=== PATIENT | male | born 1945 | race Caucasian/White ===

== ENCOUNTER 2016-04-17 11:38 | Observation (INO) | payer OTHER ==
[~2016-04-17] VITALS: Ht 175.3 cm; Wt 102.0 kg
[~2016-04-17 11:38] MED LIST: AMLODIPINE BESYL5 MG PO; CARVEDILOL25 MG PO; COZAAR100 MG PO; HYDROCHLOROTHIA25 MG PO; KLOR-CON 1010 MEQ PO; METOCLOPRAMIDE10 MG PO; MULTIPLE VITAMIN PO; NORCO1 TA1 PO; PRADAXA150 MG PO; TAMSULOSIN HCL0.4 MG PO; TRICOR145 MG PO
--- NOTE | 2016-04-17 12:39 | DIAGNOSTIC IMAGING REPORT ---
PROCEDURE: XR CHEST 1 VIEW INDICATION: WEAKNESS TECHNIQUE: Portable AP view 12:28 p.m. COMPARISON: None. FINDINGS: Poor inspiration but lungs are clear. Right-sided dual lead pacemaker. Heart size, mediastinum and pulmonary vessels are normal. Left shoulder degenerative changes. IMPRESSION: 1. Pacemaker 2. Poor inspiration
--- NOTE | 2016-04-17 13:34 | ED ORDER SUMMARY ---
..... Patient: MANDIE MENEZES OrderSheet [facility] VisitID: [id number] [address] [place] [address] 70y, M Registration Date/Time: 04/17/2016 ORDER SHEET Weight: 104.3 kg Allergies: Statins GENERAL ORDERS: Chest 1V Urgent (:04/17/2016 Bjorn OLIVIER) (Ack 11:55 [place]) Molded Goods Operator (Continuous) (:04/17/2016 Bjorn OLIVIER) (12:00 EBonham) CBC w Diff Urgent (:04/17/2016 Bjorn OLIVIER) (Ack 11:55 [place]) (12:00 EBonham) CMP Urgent (04/17/2016 Bjorn OLIVIER) (Ack 11:55 [place]) (12:00 E[place]ham) UA-Culture if indicated Urgent (04/17/2016 Bjorn OLIVIER) (Ack 11:55 [place]) PT with INR Urgent (04/17/2016 Bjorn OLIVIER) (Ack 11:55 [place]) (12:00 EBonham) PTT Urgent (04/17/2016 Bjorn OLIVIER) (Ack 11:55 [place]) (12:00 E[place]ham) D-Dimer Urgent (04/17/2016 Bjorn OLIVIER) (Ack 11:55 [place]) (12:00 E[place]) Amylase Urgent (04/17/2016 Bjorn OLIVIER) (Ack 11:55 [place]) (12:00 E[place]) Lipase Urgent (:04/17/2016 Bjorn OLIVIER) (Ack 11:55 [place]) (12:00 E[place]) CPK Urgent (04/17/2016 Bjorn OLIVIER) (Ack 11:55 [place]) (12:00 [place]) Troponin-I Urgent (:04/17/2016 Bjorn OLIVIER) (Ack 11:55 [place]) (12:00 [place]) BNP Urgent (04/17/2016 Bjorn OLIVIER) (Ack 11:55 [place]) (12:00 [facility]) Oxygen (2 L/min) (NC) (11:04/17/2016 Bjorn OLIVIER) (12:00 [facility]) Pulse oximeter (:04/17/2016 Bjorn OLIVIER) (12:00 [facility]) EKG - ER Stat (11:04/17/2016 Bjorn OLIVIER) (Ack 11:55 [place]) (12:00 [facility]) Vitals - Orthostatic (12:04/17/2016 Bjorn OLIVIER) (12:31 [place]) Blood Culture (No) (N/A) Urgent (12:04/17/2016 Bjorn OLIVIER) (Ack 12:34 [place]) (14:12 [facility] ER Tech1) Lactate, Serum Urgent (12:04/17/2016 Bjorn OLIVIER) (Ack 12:34 [place]) (14:12 [facility] ER Tech1) PCT (Procalcitonin) Urgent (12:04/17/2016 Bjorn OLIVIER) (Ack 12:34 [place]) (14:12 [facility] ER Tech1) MEDICATION ORDERS: Carafate PO 500 mg (NOW) (15:07 04/17/2016 Bjorn OLIVIER) (15:23 [facility]) IV FLUIDS: IV Saline Lock (11:04/17/2016 Bjorn OLIVIER) (Ack 11:59 HKone R.N.) (12:01 [facility]) IV NS : initial bolus 250 mL (1000 mL/hr), then 125 mL/hr for 4h (NOW); Urgent (12:04/17/2016 Bjorn OLIVIER) (12:09 [facility]) ORDER SHEET NOTES: [Electronically signed by Olivia Marcus (16:04/17/2016)] [Electronically locked/signed by Olivia Marcus (16:04/17/2016)]
--- NOTE | 2016-04-17 13:34 | ED CLINICAL REPORT ---
Clinical Report - Physicians/Mid Levels [facility] [address] [place] [address] 04/17/2016 11:37 Patient: MANDIE MENEZES Time Seen: 11:42. Arrived- By private vehicle. Historian- patient. HISTORY OF PRESENT ILLNESS Chief Complaint: WEAKNESS. This started about 1 month ago and is still present. It was gradual in onset and has been constant and waxing/waning. The patient has had loss of appetite, fatigue, decreased urine output and generalized weakness. He has had weight loss with poor appetite and nutritional intake (15 lbs over 4 - 5 months). REVIEW OF SYSTEMS No chills, fever, muscle aches, sweats or calf pain. No pedal edema, palpitations, abdominal pain, black stools or bloody stools. No nausea or vomiting. He has had fatigue, weight loss, difficulty breathing and generalized weakness. He has had mild, dull right-sided chest pain (for 15 - 20 seconds yesterday), currently gone. He has had a moderate cough productive of thick, yellow, frankly bloody sputum (for several days). No blood tinged sputum. He has had loose stools (for several weeks). It has been watery. No bloody diarrhea. He has had moderate dizziness described as a light-headedness when standing. All systems otherwise negative, except as recorded above. PAST HISTORY PCP - Micaela. Problems: Abdominal Pain. Gallstone(s). RI. Pacemaker. Diabetes Mellitus. Hypertension. Additional Surgeries: Cholecystectomy. Pacemaker. Sinus Surgery. Medications: Albuterol Sulfate Inhalation. AmLODIPine Besylate Oral 5 mg, daily. Cozaar Oral 100 mg, daily. Hydrochlorothiazide Oral 25 mg, daily. Lupron Depot Intramuscular, Q 6 months. MetFORMIN HCl Oral 500 mg, 2x a day. Metoclopramide HCl Oral 10 mg, 2x a day. Nitrostat Sublingual 0.4 mg, PRN. Potassium Oral 10 MEQ, daily. Pradaxa Oral (Capsule 150 mg) 1 capsule, 2xdaily. Tricor Oral (Tablet 145 mg) 1 tablet. Allergies: Statins. SOCIAL HISTORY Never smoker. No alcohol use or drug use. Residence: [place] Resides in a house. He lives alone. FAMILY HISTORY Diabetes in first-degree relative (father); heart disease in first-degree relative (father). ADDITIONAL NOTES The nursing notes have been reviewed. PHYSICAL EXAM Vital Signs: 04/17/2016 11:55 BP: 112/71. HR: 74. RR: 16. O2 saturation: 98%. Temp: 98.7 F. Have been reviewed. Appearance: Alert. No acute distress. Eyes: Pupils equal, round and reactive to light. ENT: Pharynx normal. Neck: Normal inspection. Neck supple. CVS: Normal heart rate and rhythm. Heart sounds normal. Respiratory: No respiratory distress. Breath sounds normal. Abdomen: No visible injury. Soft and nontender. Bowel sounds normal. No organomegaly. No mass. Back: Normal inspection. Rectal: Rectal exam normal and nontender. Stool heme negative. (POC test reference range: negative). Skin: Skin warm and dry. Normal skin color. Normal skin turgor. Pallor. Extremities: Extremities exhibit normal ROM. No calf tenderness. No lower extremity edema. LABS, X-RAYS, AND EKG EKG: Rate: 75. Ventricular paced rhythm. The study has been independently viewed by me. EKG #2: Rate: 75. Paced rhythm. EKG unchanged when compared with prior EKG. The study has been independently viewed by me. Chest X-ray: (IMPRESSION: 1. Pacemaker 2. Poor inspiration). The X-rays were interpreted by the radiologist and contemporaneously by me. Laboratory Tests: CBC w Diff: (ELAINA: 04/17/2016 11:47) ( MsgRcvd 04/17/2016 12:04) Final results Test Result Flag Units (Reference) WHITE BLOOD COUNT 14.5 H K/uL (4.5-11.5) RED BLOOD COUNT 5.11 M/uL (4.50-5.90) HEMOGLOBIN 15.3 gm/dL (13.5-17.5) HEMATOCRIT 45.7 % (41.0-53.0) MEAN CELL VOLUME 89 fL (80-100) MEAN CORPUSCULAR HGB 30 pg (26-34) MEAN CORPUSCULAR HGB CONC 33 g/dL (31-37) RED CELL DISTRIBUTION WIDTH 13.8 % (11.6-14.8) PLATELET COUNT 390 K/uL (150-400) NEUTROPHIL % 82.8 H % (50-75) LYMPH % 8.3 L % (25-40) MONO % 6.9 % (3-14) EOSINOPHIL % 1.7 % (0-4) BASOPHIL % 0.3 % (0-2) PT with INR: (ELAINA: 04/17/2016 11:47) ( [facility] 04/17/2016 12:13) Final results Test Result Flag Units (Reference) INR 1.4 H (0.8-1.2) Low Intensity Therapy: INR 1.5-2.0 PT range 18.5-23.1Mod.Intensity Therapy: INR 2.0-3.0 PT range 23.1-31.5High Intensity Therapy: INR 2.5-3.5 PT range 27.4-35.5High Intensity Therapy 2: INR 3.0-4.0 PT range 31.5-39.3 APTT 46 H SECONDS (24-34) D-DIMER QUANTITATIVE 0.34 ug/mLFEU (0.27-0.52) The primary value of this quantitative assay relates toits negative predictive value (i.e. exclusion) of pulmonaryembolism/deep vein thrombosis/DIC.Elevated levels of d-dimer may also occur with:, age, cancer, inflammation, liver disease,post-op, infection, hematoma, coronary disease, peripheralarteriopathy, bleeding disorders and thrombolytic treatment.Results should be correlated with other clinical andradiological data.Testing Methodology: Latex Immunoassay Lactate, Serum: (ELAINA: 04/17/2016 12:50) ( [facility] 04/17/2016 13:28) Final results Test Result Flag Units (Reference) LACTIC ACID 1.2 mmol/L (0.4-2.0) [id number]: (ELAINA: 04/17/2016 11:47) ( [facility] 04/17/2016 13:15) Final results Test Result Flag Units (Reference) PROCALCITONIN < 0.05 ng/mL (0-0.5) PCT Concentration: Interpretation : Risk/option for action PCT <=0.5 ng/mL : Systemic : Low risk forinfection(sepsis): progression to severeis not likely. : systemic infection.Local bacterial : CAUTION-PCT levelsinfection is : below 0.5 ng/mL do notpossible. : exclude an infection,because localizedinfections (withoutsystemic signs) may beassociated with suchlow levels. If PCT ismeasured very earlyafter a bacterialchallenge (usually <6hours), these valuesmay still be low. Inthis case PCT shouldbe re-assessed 6-24hours later. PCT >0.5 and : Systemic infection: Moderate risk for<= 2 ng/mL : (sepsis) is : progression to severepossible, but : systemic infection.other conditions : The patient should beare known to : closely monitoredelevate PCT. : both clinically andby re-assessing PCTwithin 6-24 hours. PCT > 2 ng/mL : Systemic infection: High risk for(sepsis) is likely: progression to severeunless other : systemic infection.causes are known. : PCT >= 10 ng/mL : Important systemic: High likelihood ofinflammatory : severe sepsis orresponse, almost : septic shock.exclusively due to:severe bacterial :sepsis or septic :shock. : BNP: (ELAINA: 04/17/2016 11:47) ( MsgRcvd 04/17/2016 12:26) Final results Test Result Flag Units (Reference) B-TYPE NATRIURETIC PEPTIDE 139 H pg/ml (5-100) CMP: (ELAINA: 04/17/2016 11:47) ( MsgRcvd 04/17/2016 12:34) Final results Test Result Flag Units (Reference) GLUCOSE 174 H mg/dL (70-110) BUN 16 mg/dL (7-18) CREATININE 1.0 mg/dL (0.6-1.3) Estimated GFR >60 mL/min Estimated GFR- >60 mL/min Note: Persistent reduction over 3 months in eGFR<60 mL/min/1.73 m2 defines CKD. Patients with eGFR values>=60 mL/min/1.73 m2 may also have CKD if evidence ofpersistent proteinuria. Additional information may be foundat www.kidney.org. SODIUM 139 mmol/L (136-145) POTASSIUM 3.3 L mmol/L (3.5-5.1) CHLORIDE 102 mmol/L (98-107) CARBON DIOXIDE 21 mmol/L (21-32) CALCIUM 9.3 mg/dL (8.5-10.1) TOTAL PROTEIN 7.3 g/dL (6.4-8.2) ALBUMIN 3.9 g/dL (3.3-5.0) BILIRUBIN, TOTAL 0.9 mg/dL (0.0-1.0) ALKALINE PHOSPHATASE 34 L U/L (46-116) AST (SGOT) 20 U/L (15-37) ALT (SGPT) 19 U/L (12-78) LIPASE 80 U/L (73-393) AMYLASE 31 U/L (25-115) CPK 104 U/L (24-260) TROPONIN I <0.05 ng/mL (0.00-1.5) TROPONIN REFERENCE RANGE:<0.1 NEGATIVE0.1-1.5 INDETERMINANT>1.5 POSITIVE . PROGRESS AND PROCEDURES Course of Care: Patient is stable. Discussed case with hospitalist, (Klaus ceballos saw the patient in the emergency department). Reviewed test results and need for additional work-up. Agreed upon treatment plan, need for patient follow-up and decision to place in observation. Patient/family counseled. Old medical records ordered. Disposition: Admitted. Observation. CLINICAL IMPRESSION Diarrhea (chronic). Generalized weakness. Hypotension. (Electronically signed by Jesus Manuel MD 04/17/2016 17:27)
--- NOTE | 2016-04-17 13:34 | ED NURSING NOTES ---
Clinical Report - Nurses [facility] [address] [place] [address] 04/17/2016 11:37 Patient: MANDIE MENEZES TRIAGE Triage time 1145. Acuity: LEVEL 3. Chief Complaint: DIARRHEA. Alert. No acute distress. (pale). --11:58 Olivia Marcus 11:55 04/17/16. BP: 112/71. HR: 74. RR: 16. O2 saturation: 98%. Temp: 98.7 F. Pain level now 0/10. --11:58 Olivia Marcus. Weight: 104.3 kg. Height/Length: 69 inches. BMI: 34. --11:55 Olivia Marcus. Medications Albuterol Sulfate Inhalation. AmLODIPine Besylate Oral 5 mg, daily. Cozaar Oral 100 mg, daily. Hydrochlorothiazide Oral 25 mg, daily. Lupron Depot Intramuscular, Q 6 months. MetFORMIN HCl Oral 500 mg, 2x a day. Metoclopramide HCl Oral 10 mg, 2x a day. Nitrostat Sublingual 0.4 mg, PRN. Potassium Oral 10 MEQ, daily. Pradaxa Oral (Capsule 150 mg) 1 capsule, 2xdaily. Tricor Oral (Tablet 145 mg) 1 tablet. --11:57 Olivia Marcus. Allergies Statins. --11:57 Olivia Marcus. History Arrived by private vehicle. Historian: patient. Onset. (2 weeks ago). ( Pt with 2 weeks of diarrhea, denies n/v, now feels tired and weak, used immodium to clear up diarrhea, denies any new pains or sob, PCP told him to come to ER). Treatment HAND PAINTER: None. FALL RISK ASSESSMENT: Fall risk assessment completed. No fall risk identified. NUTRITIONAL RISK ASSESSMENT: The nutritional risk assessment revealed no deficiencies. FUNCTIONAL ASSESSMENT: Functional assessment: no impairments noted. LEARNING NEEDS ASSESSMENT: The learning needs assessment revealed no barriers. --11:58 Olivia Marcus. PROBLEMS: Abdominal Pain. Gallstone(s). [place]. Pacemaker. Diabetes Mellitus. Hypertension. --11:57 Olivia Marcus. ADDITIONAL SURGERIES: Cholecystectomy. Pacemaker. Sinus Surgery. --11:57 Olivia Marcus. Interventions ID band on patient. To treatment room. --11:58 Olivia Marcus. PHYSICAL ASSESSMENT Ambulatory to room. GENERAL / NEURO / PSYCH: Alert. Oriented X 4. (pale). RESPIRATORY: Mild respiratory distress. Breath sounds within normal limits. CVS: Normal sinus rhythm noted. Capillary refill less than 2 seconds. GI / : The patient has diarrhea. Abdomen soft and nontender. Bowel sounds within normal limits. SKIN: Skin is pale. Skin is cool and diaphoretic. --11:59 Olivia Marcus. NURSING PROGRESS NOTES 12:00 04/17/2016 Site #1 started via IV in the right antecubital space with an 20g angiocath, with aseptic technique and good blood return; one attempt. Blood drawn: rainbow set. Labeled in the presence of the patient and sent to the lab. Saline lock flushed with 10 mL saline. --12:00 Olivia Marcus Monitoring of patient in place. Reassurance given. Two patient identifiers checked. Call light placed in reach. Side rails up x 1. Bed placed in lowest position. Patient ready for evaluation- chart flagged. --12:00 Olivia Marcus EKG time: (12:01 PM). EKG was performed by a kaci and shown to the ED physician. --12:03 Pavan Harper 12:04/17/2016 Started bag #1 1000 mL IV Fluids IV NS (Saline); bolus of 250 mL wide open via site #1. Allergies verified and confirmed 5 rights. IV patency established. IV site checked: no pain, redness, or swelling. IV flushed thoroughly pre- and post-medication administration. --12: Olivia Marcus 12:28 04/17/16. BP: 75/46 taken on the left arm, via an automated monitor, while lying. ED physician notified. HR: 75. RR: 19. O2 saturation: 95% on room air. --12:29 Pavan Harper <<STRICKEN ENTRY-- electromechanical equipment assembler, pulse oximeter and NIBP monitor placed on patient; director of cardiac cath lab- Lead V1, V2 and V3. --12:29 Pavan Harper --END STRIKE>> Charted On Wrong Patient --12:30 Pavan Harper 13:00 04/17/16. BP: 70/46. HR: 80. RR: 16. --13:01 Cocoa, Olivia Patient ready for evaluation- ED physician notified. ( 250ml NS bolus #[address] Manuel). --13:01 Olivia Marcus 13:15 04/17/16. BP: 80/47. HR: 70. RR: 16. --13:16 Cocoa, Olivia ( 250 ml NS #3 started). --13:16 Cocoa, Olivia Patient ready for evaluation- ED physician notified. --13:16 AngelineOlivia 13:31 04/17/16. BP: 89/48. HR: 70. --13:31 Olivia Marcus ( 250ml NS bolus #4 started). --13:31 AngelineOlivia Patient ready for evaluation- ED physician notified. --13:32 Olivia Marcus 13:52 04/17/2016 Site #1; patent. Converted to saline lock. Flushed with 10 mL saline. (1000 ml infused). --13:52 Kaylee Ruano R.N. 15:23 04/17/2016 Carafate (Sucralfate) PO 500 mg given. Allergies verified and confirmed 5 rights. --15:23 Olivia Marcus Patient ready for evaluation- ED physician notified. ( Provider aware of low b/p post bolus of total 1l after 45 min, ER provider not wanting to order anything at this time, pt noted to be pale and with decreased mentation, RN Demolition Hammer Operator called, explained situation, pt to go to CCU, TO for 250ml bolus from hospitalist). --15:49 Olivia Marcus 15:46 04/17/16. BP: 74/47. HR: 78. RR: 16. --15:49 Olivia Marcus. DISPOSITION / DISCHARGE Departure time: 1600. Condition at departure: unchanged. ( hypotension profound noted). Admitted to the Critical Care Unit (1600). Transported via stretcher by nurse. Report was given to a nurse via a phone call. Report included patient's care, treatment, medications, reviewed medication reconcilliation, and condition (including any recent changes or anticipated changes). All questions were answered. Report was acknowledged and care was transferred. (Katherine ESCALERA). --15:51 Olivia Marcus 15:51 04/17/2016 IV Fluids IV NS Discontinued: bag #1 infused upon transfer. Total amount infused: 1000 mL. --15:51 Olivia Marcus. Locked/Released at 04/17/2016 16:02 by Olivia Marcus,
--- NOTE | 2016-04-17 13:34 | ED CLINICAL REPORT ---
Clinical Report - Physicians/Mid Levels Formerly [facility] [address] [place] [address] 04/17/2016 11:37 Patient: MANDIE MENEZES Time Seen: 11:42. Arrived- By private vehicle. Historian- patient. HISTORY OF PRESENT ILLNESS Chief Complaint: WEAKNESS. This started about 1 month ago and is still present. It was gradual in onset and has been constant and waxing/waning. The patient has had loss of appetite, fatigue, decreased urine output and generalized weakness. He has had weight loss with poor appetite and nutritional intake (15 lbs over 4 - 5 months). REVIEW OF SYSTEMS No chills, fever, muscle aches, sweats or calf pain. No pedal edema, palpitations, abdominal pain, black stools or bloody stools. No nausea or vomiting. He has had fatigue, weight loss, difficulty breathing and generalized weakness. He has had mild, dull right-sided chest pain (for 15 - 20 seconds yesterday), currently gone. He has had a moderate cough productive of thick, yellow, frankly bloody sputum (for several days). No blood tinged sputum. He has had loose stools (for several weeks). It has been watery. No bloody diarrhea. He has had moderate dizziness described as a light-headedness when standing. All systems otherwise negative, except as recorded above. PAST HISTORY PCP - Micaela. Problems: Abdominal Pain. Gallstone(s). DC. Pacemaker. Diabetes Mellitus. Hypertension. Additional Surgeries: Cholecystectomy. Pacemaker. Sinus Surgery. Medications: Albuterol Sulfate Inhalation. AmLODIPine Besylate Oral 5 mg, daily. Cozaar Oral 100 mg, daily. Hydrochlorothiazide Oral 25 mg, daily. Lupron Depot Intramuscular, Q 6 months. MetFORMIN HCl Oral 500 mg, 2x a day. Metoclopramide HCl Oral 10 mg, 2x a day. Nitrostat Sublingual 0.4 mg, PRN. Potassium Oral 10 MEQ, daily. Pradaxa Oral (Capsule 150 mg) 1 capsule, 2xdaily. Tricor Oral (Tablet 145 mg) 1 tablet. Allergies: Statins. SOCIAL HISTORY Never smoker. No alcohol use or drug use. Residence: [place] Resides in a house. He lives alone. FAMILY HISTORY Diabetes in first-degree relative (father); heart disease in first-degree relative (father). ADDITIONAL NOTES The nursing notes have been reviewed. PHYSICAL EXAM Vital Signs: 04/17/2016 11:55 BP: 112/71. HR: 74. RR: 16. O2 saturation: 98%. Temp: 98.7 F. Have been reviewed. Appearance: Alert. No acute distress. Eyes: Pupils equal, round and reactive to light. ENT: Pharynx normal. Neck: Normal inspection. Neck supple. CVS: Normal heart rate and rhythm. Heart sounds normal. Respiratory: No respiratory distress. Breath sounds normal. Abdomen: No visible injury. Soft and nontender. Bowel sounds normal. No organomegaly. No mass. Back: Normal inspection. Rectal: Rectal exam normal and nontender. Stool heme negative. (POC test reference range: negative). Skin: Skin warm and dry. Normal skin color. Normal skin turgor. Pallor. Extremities: Extremities exhibit normal ROM. No calf tenderness. No lower extremity edema. LABS, X-RAYS, AND EKG EKG: Rate: 75. Ventricular paced rhythm. The study has been independently viewed by me. EKG #2: Rate: 75. Paced rhythm. EKG unchanged when compared with prior EKG. The study has been independently viewed by me. Chest X-ray: (IMPRESSION: 1. Pacemaker 2. Poor inspiration). The X-rays were interpreted by the radiologist and contemporaneously by me. Laboratory Tests: CBC w Diff: (ELAINA: 04/17/2016 11:47) ( MsgRcvd 04/17/2016 12:04) Final results Test Result Flag Units (Reference) WHITE BLOOD COUNT 14.5 H K/uL (4.5-11.5) RED BLOOD COUNT 5.11 M/uL (4.50-5.90) HEMOGLOBIN 15.3 gm/dL (13.5-17.5) HEMATOCRIT 45.7 % (41.0-53.0) MEAN CELL VOLUME 89 fL (80-100) MEAN CORPUSCULAR HGB 30 pg (26-34) MEAN CORPUSCULAR HGB CONC 33 g/dL (31-37) RED CELL DISTRIBUTION WIDTH 13.8 % (11.6-14.8) PLATELET COUNT 390 K/uL (150-400) NEUTROPHIL % 82.8 H % (50-75) LYMPH % 8.3 L % (25-40) MONO % 6.9 % (3-14) EOSINOPHIL % 1.7 % (0-4) BASOPHIL % 0.3 % (0-2) PT with INR: (ELAINA: 04/17/2016 11:47) ( [facility] 04/17/2016 12:13) Final results Test Result Flag Units (Reference) INR 1.4 H (0.8-1.2) Low Intensity Therapy: INR 1.5-2.0 PT range 18.5-23.1Mod.Intensity Therapy: INR 2.0-3.0 PT range 23.1-31.5High Intensity Therapy: INR 2.5-3.5 PT range 27.4-35.5High Intensity Therapy 2: INR 3.0-4.0 PT range 31.5-39.3 APTT 46 H SECONDS (24-34) D-DIMER QUANTITATIVE 0.34 ug/mLFEU (0.27-0.52) The primary value of this quantitative assay relates toits negative predictive value (i.e. exclusion) of pulmonaryembolism/deep vein thrombosis/DIC.Elevated levels of d-dimer may also occur with:, age, cancer, inflammation, liver disease,post-op, infection, hematoma, coronary disease, peripheralarteriopathy, bleeding disorders and thrombolytic treatment.Results should be correlated with other clinical andradiological data.Testing Methodology: Latex Immunoassay Lactate, Serum: (ELAINA: 04/17/2016 12:50) ( [facility] 04/17/2016 13:28) Final results Test Result Flag Units (Reference) LACTIC ACID 1.2 mmol/L (0.4-2.0) [id number]: (ELAINA: 04/17/2016 11:47) ( [facility] 04/17/2016 13:15) Final results Test Result Flag Units (Reference) PROCALCITONIN < 0.05 ng/mL (0-0.5) PCT Concentration: Interpretation : Risk/option for action PCT <=0.5 ng/mL : Systemic : Low risk forinfection(sepsis): progression to severeis not likely. : systemic infection.Local bacterial : CAUTION-PCT levelsinfection is : below 0.5 ng/mL do notpossible. : exclude an infection,because localizedinfections (withoutsystemic signs) may beassociated with suchlow levels. If PCT ismeasured very earlyafter a bacterialchallenge (usually <6hours), these valuesmay still be low. Inthis case PCT shouldbe re-assessed 6-24hours later. PCT >0.5 and : Systemic infection: Moderate risk for<= 2 ng/mL : (sepsis) is : progression to severepossible, but : systemic infection.other conditions : The patient should beare known to : closely monitoredelevate PCT. : both clinically andby re-assessing PCTwithin 6-24 hours. PCT > 2 ng/mL : Systemic infection: High risk for(sepsis) is likely: progression to severeunless other : systemic infection.causes are known. : PCT >= 10 ng/mL : Important systemic: High likelihood ofinflammatory : severe sepsis orresponse, almost : septic shock.exclusively due to:severe bacterial :sepsis or septic :shock. : BNP: (ELAINA: 04/17/2016 11:47) ( MsgRcvd 04/17/2016 12:26) Final results Test Result Flag Units (Reference) B-TYPE NATRIURETIC PEPTIDE 139 H pg/ml (5-100) CMP: (ELAINA: 04/17/2016 11:47) ( MsgRcvd 04/17/2016 12:34) Final results Test Result Flag Units (Reference) GLUCOSE 174 H mg/dL (70-110) BUN 16 mg/dL (7-18) CREATININE 1.0 mg/dL (0.6-1.3) Estimated GFR >60 mL/min Estimated GFR- >60 mL/min Note: Persistent reduction over 3 months in eGFR<60 mL/min/1.73 m2 defines CKD. Patients with eGFR values>=60 mL/min/1.73 m2 may also have CKD if evidence ofpersistent proteinuria. Additional information may be foundat www.kidney.org. SODIUM 139 mmol/L (136-145) POTASSIUM 3.3 L mmol/L (3.5-5.1) CHLORIDE 102 mmol/L (98-107) CARBON DIOXIDE 21 mmol/L (21-32) CALCIUM 9.3 mg/dL (8.5-10.1) TOTAL PROTEIN 7.3 g/dL (6.4-8.2) ALBUMIN 3.9 g/dL (3.3-5.0) BILIRUBIN, TOTAL 0.9 mg/dL (0.0-1.0) ALKALINE PHOSPHATASE 34 L U/L (46-116) AST (SGOT) 20 U/L (15-37) ALT (SGPT) 19 U/L (12-78) LIPASE 80 U/L (73-393) AMYLASE 31 U/L (25-115) CPK 104 U/L (24-260) TROPONIN I <0.05 ng/mL (0.00-1.5) TROPONIN REFERENCE RANGE:<0.1 NEGATIVE0.1-1.5 INDETERMINANT>1.5 POSITIVE . PROGRESS AND PROCEDURES Course of Care: Patient is stable. Discussed case with hospitalist, (Klaus ceballos saw the patient in the emergency department). Reviewed test results and need for additional work-up. Agreed upon treatment plan, need for patient follow-up and decision to place in observation. Patient/family counseled. Old medical records ordered. Disposition: Admitted. Observation. CLINICAL IMPRESSION Diarrhea (chronic). Generalized weakness. Hypotension. (Electronically signed by Jesus Manuel MD 04/17/2016 17:27)
--- NOTE | 2016-04-17 13:34 | ED ORDER SUMMARY ---
..... Patient: MANDIE MENEZES OrderSheet [facility] VisitID: [id number] [address] [place] [address] 70y, M Registration Date/Time: 04/17/2016 ORDER SHEET Weight: 104.3 kg Allergies: Statins GENERAL ORDERS: Chest 1V Urgent (:04/17/2016 Bjorn OLIVIER) (Ack 11:55 [place]) Tobacco Packing Machine Operator (Continuous) (:04/17/2016 Bjorn OLIVIER) (12:00 EBon[place]) CBC w Diff Urgent (:04/17/2016 Bjorn OLIVIER) (Ack 11:55 [place]) (12:00 E[place]ham) CMP Urgent (04/17/2016 Bjorn OLIVIER) (Ack 11:55 [place]) (12:00 E[place]) UA-Culture if indicated Urgent (04/17/2016 Bjorn OLIVIER) (Ack 11:55 [place]) PT with INR Urgent (04/17/2016 Bjorn OLIVIER) (Ack 11:55 [place]) (12:00 E[place]) PTT Urgent (04/17/2016 Bjorn OLIVIER) (Ack 11:55 [place]) (12:00 E[place]) D-Dimer Urgent (04/17/2016 Bjorn OLIVIER) (Ack 11:55 [place]) (12:00 [place]) Amylase Urgent (04/17/2016 Bjorn OLIVIER) (Ack 11:55 [place]) (12:00 E[place]) Lipase Urgent (:04/17/2016 Bjorn OLIVIER) (Ack 11:55 [place]) (12:00 [place]) CPK Urgent (04/17/2016 Bjorn OLIVIER) (Ack 11:55 [place]) (12:00 [place]) Troponin-I Urgent (:04/17/2016 Bjorn OLIVIER) (Ack 11:55 [place]) (12:00 [place]) BNP Urgent (04/17/2016 Bjorn OLIVIER) (Ack 11:55 [place]) (12:00 [facility]) Oxygen (2 L/min) (NC) (11:04/17/2016 Bjorn OLIVIER) (12:00 [facility]) Pulse oximeter (:04/17/2016 Bjorn OLIVIER) (12:00 [facility]) EKG - ER Stat (11:04/17/2016 Bjorn OLIVIER) (Ack 11:55 [place]) (12:00 [facility]) Vitals - Orthostatic (12:04/17/2016 Bjorn OLIVIER) (12:31 [place]) Blood Culture (No) (N/A) Urgent (12:04/17/2016 Bjorn OLIVIER) (Ack 12:34 [place]) (14:12 [facility] ER Tech1) Lactate, Serum Urgent (12:04/17/2016 Bjorn OLIVIER) (Ack 12:34 [place]) (14:12 [facility] ER Tech1) PCT (Procalcitonin) Urgent (12:04/17/2016 Bjorn OLIVIER) (Ack 12:34 [place]) (14:12 [facility] ER Tech1) MEDICATION ORDERS: Carafate PO 500 mg (NOW) (15:07 04/17/2016 Bjorn OLIVIER) (15:23 [facility]) IV FLUIDS: IV Saline Lock (11:04/17/2016 Bjorn OLIVIER) (Ack 11:59 HKone R.N.) (12:01 [facility]) IV NS : initial bolus 250 mL (1000 mL/hr), then 125 mL/hr for 4h (NOW); Urgent (12:04/17/2016 Bjorn OLIVIER) (12:09 [facility]) ORDER SHEET NOTES: [Electronically signed by Olivia Marcus (16:04/17/2016)] [Electronically locked/signed by Olivia Marcus (16:04/17/2016)]
--- NOTE | 2016-04-17 13:34 | ED NURSING NOTES ---
Clinical Report - Nurses [facility] [address] [place] [address] 04/17/2016 11:37 Patient: MANDIE MENEZES TRIAGE Triage time 1145. Acuity: LEVEL 3. Chief Complaint: DIARRHEA. Alert. No acute distress. (pale). --11:58 Olivia Marcus 11:55 04/17/16. BP: 112/71. HR: 74. RR: 16. O2 saturation: 98%. Temp: 98.7 F. Pain level now 0/10. --11:58 Olivia Marcus. Weight: 104.3 kg. Height/Length: 69 inches. BMI: 34. --11:55 Olivia Marcus. Medications Albuterol Sulfate Inhalation. AmLODIPine Besylate Oral 5 mg, daily. Cozaar Oral 100 mg, daily. Hydrochlorothiazide Oral 25 mg, daily. Lupron Depot Intramuscular, Q 6 months. MetFORMIN HCl Oral 500 mg, 2x a day. Metoclopramide HCl Oral 10 mg, 2x a day. Nitrostat Sublingual 0.4 mg, PRN. Potassium Oral 10 MEQ, daily. Pradaxa Oral (Capsule 150 mg) 1 capsule, 2xdaily. Tricor Oral (Tablet 145 mg) 1 tablet. --11:57 Olivia Marcus. Allergies Statins. --11:57 Olivia Marcus. History Arrived by private vehicle. Historian: patient. Onset. (2 weeks ago). ( Pt with 2 weeks of diarrhea, denies n/v, now feels tired and weak, used immodium to clear up diarrhea, denies any new pains or sob, PCP told him to come to ER). Treatment SENIOR ACCOUNT DIRECTOR: None. FALL RISK ASSESSMENT: Fall risk assessment completed. No fall risk identified. NUTRITIONAL RISK ASSESSMENT: The nutritional risk assessment revealed no deficiencies. FUNCTIONAL ASSESSMENT: Functional assessment: no impairments noted. LEARNING NEEDS ASSESSMENT: The learning needs assessment revealed no barriers. --11:58 Olivia Marcus. PROBLEMS: Abdominal Pain. Gallstone(s). CA. Pacemaker. Diabetes Mellitus. Hypertension. --11:57 Olivia Marcus. ADDITIONAL SURGERIES: Cholecystectomy. Pacemaker. Sinus Surgery. --11:57 Olivia Marcus. Interventions ID band on patient. To treatment room. --11:58 Olivia Marcus. PHYSICAL ASSESSMENT Ambulatory to room. GENERAL / NEURO / PSYCH: Alert. Oriented X 4. (pale). RESPIRATORY: Mild respiratory distress. Breath sounds within normal limits. CVS: Normal sinus rhythm noted. Capillary refill less than 2 seconds. GI / : The patient has diarrhea. Abdomen soft and nontender. Bowel sounds within normal limits. SKIN: Skin is pale. Skin is cool and diaphoretic. --11:59 Olivia Marcus. NURSING PROGRESS NOTES 12:00 04/17/2016 Site #1 started via IV in the right antecubital space with an 20g angiocath, with aseptic technique and good blood return; one attempt. Blood drawn: rainbow set. Labeled in the presence of the patient and sent to the lab. Saline lock flushed with 10 mL saline. --12:00 Olivia Marcus Monitoring of patient in place. Reassurance given. Two patient identifiers checked. Call light placed in reach. Side rails up x 1. Bed placed in lowest position. Patient ready for evaluation- chart flagged. --12:00 Olivia Marcus EKG time: (12:01 PM). EKG was performed by a kaci and shown to the ED physician. --12:03 Pavan Harper 12:04/17/2016 Started bag #1 1000 mL IV Fluids IV NS (Saline); bolus of 250 mL wide open via site #1. Allergies verified and confirmed 5 rights. IV patency established. IV site checked: no pain, redness, or swelling. IV flushed thoroughly pre- and post-medication administration. --12: Olivia Marcus 12:28 04/17/16. BP: 75/46 taken on the left arm, via an automated monitor, while lying. ED physician notified. HR: 75. RR: 19. O2 saturation: 95% on room air. --12:29 Pavan Harper <<STRICKEN ENTRY-- conveyor monitor, pulse oximeter and NIBP monitor placed on patient; conveyor monitor- Lead V1, V2 and V3. --12:29 Pavan Harper --END STRIKE>> Charted On Wrong Patient --12:30 Pavan Harper 13:00 04/17/16. BP: 70/46. HR: 80. RR: 16. --13:01 [place], Olivia Patient ready for evaluation- ED physician notified. ( 250ml NS bolus #[address] Manuel). --13:01 Olivia Marcus 13:15 04/17/16. BP: 80/47. HR: 70. RR: 16. --13:16 [place], Olivia ( 250 ml NS #3 started). --13:16 [place], Olivia Patient ready for evaluation- ED physician notified. --13:16 AngelineOlivia 13:31 04/17/16. BP: 89/48. HR: 70. --13:31 Olivia Marcus ( 250ml NS bolus #4 started). --13:31 AngelineOlivia Patient ready for evaluation- ED physician notified. --13:32 Olivia Marcus 13:52 04/17/2016 Site #1; patent. Converted to saline lock. Flushed with 10 mL saline. (1000 ml infused). --13:52 Kaylee Ruano R.N. 15:23 04/17/2016 Carafate (Sucralfate) PO 500 mg given. Allergies verified and confirmed 5 rights. --15:23 Olivia Marcus Patient ready for evaluation- ED physician notified. ( Provider aware of low b/p post bolus of total 1l after 45 min, ER provider not wanting to order anything at this time, pt noted to be pale and with decreased mentation, RN Stock House Worker called, explained situation, pt to go to CCU, TO for 250ml bolus from hospitalist). --15:49 Olivia Marcus 15:46 04/17/16. BP: 74/47. HR: 78. RR: 16. --15:49 Olivia Marcus. DISPOSITION / DISCHARGE Departure time: 1600. Condition at departure: unchanged. ( hypotension profound noted). Admitted to the Critical Care Unit (1600). Transported via stretcher by nurse. Report was given to a nurse via a phone call. Report included patient's care, treatment, medications, reviewed medication reconcilliation, and condition (including any recent changes or anticipated changes). All questions were answered. Report was acknowledged and care was transferred. (Katherine ESCALERA). --15:51 Olivia Marcus 15:51 04/17/2016 IV Fluids IV NS Discontinued: bag #1 infused upon transfer. Total amount infused: 1000 mL. --15:51 Olivia Marcus. Locked/Released at 04/17/2016 16:02 by Olivia Marcus,
[2016-04-17 16:13] VITALS: BP 109/71
[2016-04-17] MEDS ORDERED: METFORMIN HCL500 MG PO (16:21)
[2016-04-17] MEDS ORDERED: NITROSTAT0.4 MG SL (16:23)
[2016-04-17] MEDS ORDERED: LUPRON DEPOT3.75 MG IM (16:23)
[2016-04-17] MEDS ORDERED: PROAIR HFA IN (16:34)
--- NOTE | 2016-04-17 17:27 | ED MED RECONCILIATION SUMMARY ---
Patient: MANDIE MENEZES Medication Reconciliation Report [facility] VisitID: [id number] [address] [place] [address] 70y, M Registration Date/Time: 04/17/2016 Weight: 104.3 kg Height/Length: 69 in. BMI: 34.0 ALLERGIES: Statins The patient's Home Medications are listed below: THE FOLLOWING MEDICATIONS NEED TO BE RECONCILED: Albuterol Sulfate Inhalation AmLODIPine Besylate Oral 5 mg, daily Cozaar Oral 100 mg, daily Hydrochlorothiazide Oral 25 mg, daily Lupron Depot Intramuscular, Q 6 months MetFORMIN HCl Oral 500 mg, 2x a day Metoclopramide HCl Oral 10 mg, 2x a day Nitrostat Sublingual 0.4 mg, PRN Potassium Oral 10 MEQ, daily Pradaxa Oral (150 mg) 1 capsule, 2xdaily Tricor Oral (145 mg) 1 tablet The source(s) of the original Home Medication information: Not obtained. The following Medications were given to the patient in the Emergency Department: IV NS IV Fluids bolus 250 mL wide open, administered: 04/17/2016 12:09:00 PM Carafate [PO] PO 500 mg, administered: 04/17/2016 3:23:00 PM The following Medications were prescribed to the patient: None.
--- NOTE | 2016-04-17 17:27 | ED MAR SUMMARY ---
..... Medication Administration Record [facility] [address] [place] [address] Patient: MANDIE MENEZES Visit ID: [id number] 70y, M Weight: 104.3 kg Height/Length: 69 in BMI: 34 ALLERGIES: Statins Start 12:09 04/17/2016 Olivia Marcus,, Stop 15:51 04/17/2016 Olivia Marcus, Medication Administered: IV NS (SALINE), Dose: IV Fluids, Bolus: 250 mL wide open, Dispensed: 1000 mL bag, Site: #1 right AC. Medication Ordered: IV NS : initial bolus 250 mL (1000 mL/hr), then 125 mL/hr for 4h (NOW); Urgent. Given 15:23 04/17/2016 Olivia Marcus, Medication Administered: CARAFATE [PO] (SUCRALFATE), Dose: 500 mg PO. Medication Ordered: Carafate PO 500 mg (NOW).
--- NOTE | 2016-04-17 17:27 | ED MED RECONCILIATION SUMMARY ---
Patient: MANDIE MENEZES Medication Reconciliation Report [facility] VisitID: [id number] [address] [place] [address] 70y, M Registration Date/Time: 04/17/2016 Weight: 104.3 kg Height/Length: 69 in. BMI: 34.0 ALLERGIES: Statins The patient's Home Medications are listed below: THE FOLLOWING MEDICATIONS NEED TO BE RECONCILED: Albuterol Sulfate Inhalation AmLODIPine Besylate Oral 5 mg, daily Cozaar Oral 100 mg, daily Hydrochlorothiazide Oral 25 mg, daily Lupron Depot Intramuscular, Q 6 months MetFORMIN HCl Oral 500 mg, 2x a day Metoclopramide HCl Oral 10 mg, 2x a day Nitrostat Sublingual 0.4 mg, PRN Potassium Oral 10 MEQ, daily Pradaxa Oral (150 mg) 1 capsule, 2xdaily Tricor Oral (145 mg) 1 tablet The source(s) of the original Home Medication information: Not obtained. The following Medications were given to the patient in the Emergency Department: IV NS IV Fluids bolus 250 mL wide open, administered: 04/17/2016 12:09:00 PM Carafate [PO] PO 500 mg, administered: 04/17/2016 3:23:00 PM The following Medications were prescribed to the patient: None.
--- NOTE | 2016-04-17 17:27 | ED MAR SUMMARY ---
..... Medication Administration Record [facility] [address] [place] [address] Patient: MANDIE MENEZES Visit ID: [id number] 70y, M Weight: 104.3 kg Height/Length: 69 in BMI: 34 ALLERGIES: Statins Start 12:09 04/17/2016 Olivia Marcus,, Stop 15:51 04/17/2016 Olivia Marcus, Medication Administered: IV NS (SALINE), Dose: IV Fluids, Bolus: 250 mL wide open, Dispensed: 1000 mL bag, Site: #1 right AC. Medication Ordered: IV NS : initial bolus 250 mL (1000 mL/hr), then 125 mL/hr for 4h (NOW); Urgent. Given 15:23 04/17/2016 Olivia Marcus, Medication Administered: CARAFATE [PO] (SUCRALFATE), Dose: 500 mg PO. Medication Ordered: Carafate PO 500 mg (NOW).
--- NOTE | 2016-04-17 17:27 | ED DISCHARGE INSTRUCTIONS ---
Patient: MANDIE MENEZES General Instructions [facility] VisitID: [id number] [address] [place] [address] 70y, M Registration Date/Time: 04/17/2016 Diarrhea (chronic). Generalized weakness. Hypotension. (Electronically signed by Jesus Manuel MD 04/17/2016 17:27)
--- NOTE | 2016-04-17 17:27 | ED DISCHARGE INSTRUCTIONS ---
Patient: MANDIE MENEZES General Instructions [facility] VisitID: [id number] [address] [place] [address] 70y, M Registration Date/Time: 04/17/2016 Diarrhea (chronic). Generalized weakness. Hypotension. (Electronically signed by Jesus Manuel MD 04/17/2016 17:27)
[2016-04-17 18:15] VITALS: BP 99/65
--- NOTE | 2016-04-17 18:56 | History & Physical Report ---
Information Source Information Source: Self Reliability: Good History Chief Complaint diarrhea and weakness History of Present Illness Patient is a 70 year old male with a pmh of hypertension, hyperlipidemia, CAD, and prostate cancer that is presenting with a four week history of diarrhea following a cholecystecomy. Patient has been getting progressively weaker as a result. Patient claims that the diarrhea comes on spontaneously and is not preceded by any factors. Patients diet does not change much and he does not eat out much, so there has not been any novel foods. Patient additionally has not noticed any blood or dark stools for that matter. Patient has attempted to take immodium with some relief. Patient is otherwise stable and does not have any other complaints. Patient History 1. Cholelithiasis with chronic cholecystitis 2. Chronic diarrhea 3. Hypotension 4. 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 Patient has two sons that live in the state. Family History Family history was reviewed; no changes noted. Medications and Allergies Medications Current Medications Sig/Chang Start time Last Medication Dose Route Stop Time Status Admin Amlodipine Besylate 5 MG DAILY 04/18 0900 UNV PO Carvedilol 25 MG BIDWC 04/18 0900 UNV PO Hydrochlorothiazide 25 MG DAILY 04/18 0900 UNV PO Influenza Virus 0.5 ML 0904/18 0900 AC Vaccine IM 04/18 1700 Rivaroxaban 10 MG DAILY 04/18 0900 UNV PO Loperamide HCl 4 MG BID 04/17 2100 UNV PO Tamsulosin HCl 0.4 MG DAILY 04/17 1837 UNVr PO Sodium Chloride 1,000 ML ASDIRECTED 04/17 1445 AC IV Allergies Coded Allergies: Statins (CAN'T REMEMBER REACTION 04/17/16) Review of Systems Constitutional Malaise. Denies: Fever, Chills, Sweats, Weakness, Other. Eyes Denies: Pain, Vision Change, Conjunctival Inflammation, Eyelid Inflammation, Redness, Other. ENT Denies: Ear Pain, Ear Discharge, Nose Pain, Nasal Discharge, Nasal Congestion, Mouth Pain, Mouth Swelling, Throat Pain, Throat Swelling, Other. Respiratory Denies: Cough, Dry, SOB w/exertion, Wheezing, Hemoptysis, Pleuritic Pain, Sputum , Other. Cardiovascular Denies: Chest Pain, Palpitations, Orthopnea, PND, Edema, Light-headedness, Other. Gastrointestinal Diarrhea. Denies: Nausea, Vomiting, Abdominal Pain, Constipation, Melena, Hematochezia, Other. Genitourinary Denies: Dysuria, Frequency, Incontinence, Hematuria, Retention, Other. Musculoskeletal Denies: Neck Pain, Shoulder Pain, Arm Pain, Back Pain, Hand Pain, Leg Pain, Foot Pain, Other. Skin Denies: Rash, Lesions, Jaundice, Bruising, Other. Neurological Weakness. Denies: Numbness, Incoordination, Change in speech, Confusion, Seizures, Other. Physical Exam Vital Signs / I&Os Vital Signs Date Time Temp Pulse Resp B/P Pulse O2 O2 Flow FiO2 Ox Delivery Rate 04/17 1815 97.5 75 18 99/65 96 04/17 1613 98.4 74 18 109/71 99 General Appearance Alert, Oriented X3, No acute distress HEENT Atraumatic, PERRLA, Moist mucous membranes Lungs Clear to auscultation, Normal air movement Neck No JVD, No masses Cardiovascular Regular rate and rhythm, Normal S1 and S2, No murmurs, gallops, rubs Abdomen Soft, No tenderness, No guarding, - abdominal wall hernia Extremities No clubbing, No edema, Normal pulses, No tenderness, Strength = upper ext's, Strength = lower ext's Neurological Normal speech, Normal tone, Sensation intact, Reflexes 2+ and equal , Strength 5/5 x4 ext's Psych/Mental Status Mental status normal LAB Results Laboratory Tests 04/17 04/17 04/17 04/17 1147 1147 1147 1250 Chemistry Plasma Sodium (136 - 145 mmol/L) 139 Plasma Potassium (3.5 - 5.1 mmol/L) 3.3 Plasma Chloride (98 - 107 mmol/L) 102 CO2 (Enzymatic) (21 - 32 mmol/L) 21 BUN (7 - 18 mg/dL) 16 Creatinine (0.6 - 1.3 mg/dL) 1.0 Est GFR ( Amer) (mL/min) >60 Est GFR (Non-Af Amer) (mL/min) >60 Glucose (70 - 110 mg/dL) 174 Lactic Acid (0.4 - 2.0 mmol/L) 1.2 Plasma Calcium (8.5 - 10.1 mg/dL) 9.3 Total Bilirubin (0.0 - 1.0 mg/dL) 0.9 AST (15 - 37 U/L) 20 ALT (12 - 78 U/L) 19 Alkaline Phosphatase (46 - 116 U/L) 34 Creatine Kinase (24 - 260 U/L) 104 Troponin (0.00 - 1.5 ng/mL) <0.05 B-Natriuretic Peptide (5 - 100 pg/ml) 139 Total Protein (6.4 - 8.2 g/dL) 7.3 Albumin (3.3 - 5.0 g/dL) 3.9 Amylase (25 - 115 U/L) 31 Lipase (73 - 393 U/L) 80 Procalcitonin (0 - 0.5 ng/mL) < 0.05 Coagulation INR (0.8 - 1.2) 1.4 APTT (24 - 34 SECONDS) 46 D-Dimer, Quantitative (0.27 - 0.52 ug/mLFEU) 0.34 Hematology WBC (4.5 - 11.5 K/uL) 14.5 RBC (4.50 - 5.90 M/uL) 5.11 Hgb (13.5 - 17.5 gm/dL) 15.3 Hct (41.0 - 53.0 %) 45.7 MCV (80 - 100 fL) 89 MCH (26 - 34 pg) 30 RDW (11.6 - 14.8 %) 13.8 Neut % (Auto) (50 - 75 %) 82.8 Lymph % (Auto) (25 - 40 %) 8.3 Walker % (Auto) (3 - 14 %) 6.9 Eos % (Auto) (0 - 4 %) 1.7 Baso % (Auto) (0 - 2 %) 0.3 Plt Count, EDTA (150 - 400 K/uL) 390 PUBS MCHC (31 - 37 g/dL) 33 04/17 1600 Urines Urine Color YELLOW Urine Appearance CLEAR Urine pH (5.0 - 8.0) 6.0 Ur Specific [place] (1.010 - 1.030) 1.015 Urine Protein (NEGATIVE) NEGATIVE Urine Ketones (NEGATIVE) TRACE Urine Blood (NEGATIVE) TRACE-LYSED Urine Nitrite (NEGATIVE) NEGATIVE Urine Bilirubin (NEGATIVE) NEGATIVE Urine Urobilinogen (0.2 - 1.0 EU/dL) 0.2 Ur Leukocyte Esterase (NEGATIVE) NEGATIVE Urine RBC (0 - 1 rbc/hpf) 1-3 Urine WBC (0 - 1 wbc/hpf) NONE SEEN Ur Epithelial Cells (0 - 5 EPI/hpf) 0-1 Urine Bacteria (NONE SEEN) TRACE (<1+) Urine Glucose (NEGATIVE) NEGATIVE Urine Comment CULT NOT INDICATED Microbiology Date/Time Procedure - Status Source Growth 04/17 1615 MRSA Screen - RECD NOSE 04/17 1255 Blood Culture - RECD BLOOD 04/17 1250 Blood Culture - RECD BLOOD Assessment and Plan Problem List 1. Diarrhea Plan - will proceed with aggressive iv hydration - will send stool for c diff and culture if patient continues to have diarrhea - will treat with immodium once stool is sent - most likely due to dietary intolerance after recent surgery - will monitor is and os 2. Hypotension Plan - Pt was seen to have fluid responsive hypotension - Pt is currenlty normotensive currently after 2 liters - will continue with fluid at 100 ml/hr overnight 3. Heart disease
[2016-04-17 23:02] VITALS: BP 112/65
[2016-04-18 04:23] VITALS: BP 106/66
[2016-04-18 07:45] VITALS: BP 127/84
[2016-04-18 09:40] VITALS: BP 139/84
[2016-04-18 14:34] VITALS: BP 121/80
[2016-04-18 18:41] VITALS: BP 128/74
[2016-04-18 22:50] VITALS: BP 115/58
[2016-04-19 02:42] VITALS: BP 98/49
[2016-04-19 06:44] VITALS: BP 117/67
[2016-04-19] MEDS ORDERED: LOPERAMIDE HCL PO (12:45)
--- NOTE | 2016-04-19 12:47 | Provider's Discharge Care Plan ---
Problem, Goal, Plan Problem List 1. Chronic diarrhea Instructions: - take medication as presribed. if you go 24 hours without a bowel movement please discontinue the Immodium. Then resume once diarrhea symptoms return. 2. Hypotension
--- NOTE | 2016-04-19 12:47 | Discharge Summary ---
Discharge Summary Report Admit Date 04/17/16 Discharge Date 04/18/16 Admission Diagnosis Diarrhea and dehydration Discharge Diagnosis diet induced diarrhea and dehydration Brief History Patient is a 70 year old male with a pmh of hypertension, hyperlipidemia, CAD, and prostate cancer that is presenting with a four week history of diarrhea following a cholecystecomy. Patient has been getting progressively weaker as a result. Patient claims that the diarrhea comes on spontaneously and is not preceded by any factors. Patients diet does not change much and he does not eat out much, so there has not been any novel foods. Patient additionally has not noticed any blood or dark stools for that matter. Patient has attempted to take immodium with some relief. Patient is otherwise stable and does not have any other complaints. Hospital Course Patient was admitted, for continual diarrhea for the past 4 weeks after having a cholecystectomy. Patient was resusitated with iv fluids, and electolyte abnormalities were corrected. Patients diarhea appeared to stem for dietary intolerance secondary to the cholecystecomy. Patient was treated with anti- diarrheal agents and provided information about dietary choices to make. Patient was weak secondary to dehydration however after the second day of liberal iv fluids patient was seen to make improvements and was confident about returning home. General Appearance Alert, Oriented X3, No acute distress HEENT PERRLA, Mucous membran moist/pink Lungs Normal air movement Cardiovascular Regular Rate Abdomen Soft, No tenderness Skin No Rashes, No Breakdown, No Significant Lesions Discharge Instructions/Meds - continue with immodium as needed - adhere to new diet - follow up with your pmd as an out patient
== END 2016-04-19 17:30 | disposition home or self-care (01) ==
LOC: ED SRH 11:38 → TRANS SRH 14:31 → ACUTE3 SRH 14:31 → CC SRH 16:25 → ACUTE3 SRH 04-18 06:34 → CC SRH 04-18 15:30
PROVIDERS: ADMIT Emergency Medicine
PROC: 3E0234Z Introduction of Serum, Toxoid and Vaccine into Muscle, Percutaneous Approach (ICD-10-PCS; principal; 2016-04-18)
DX: E86.0 Dehydration (principal); K91.89 Other postprocedural complications and disorders of digestive system; K59.1 Functional diarrhea; Z90.49 Acquired absence of other specified parts of digestive tract; I95.9 Hypotension, unspecified; R53.1 Weakness; Z23 Encounter for immunization
CPT/HCPCS: 29241; 29242; 29257; 85241; 85244; 90004; 90047; 90065; 90074; 90100; 90616; 91320; 91556; 91672; 92031; 92132; 92235; 92530; 92610; 93004; 94001; 94060; 95059

== ENCOUNTER 2016-06-08 13:46 | Emergency (ER) | payer OTHER ==
[~2016-06-08 13:46] MED LIST changes: +LOPERAMIDE HCL PO; +LUPRON DEPOT3.75 MG IM; +METFORMIN HCL500 MG PO; +NITROSTAT0.4 MG SL; +PROAIR HFA IN
--- NOTE | 2016-06-08 15:24 | ED NURSING NOTES ---
Clinical Report - Nurses [facility] [address] [place] [address] 06/08/2016 13:47 Patient: MANDIE MENEZES [place] Llct#: [id number] TRIAGE Triage time 14:22. Acuity: LEVEL 3. Chief Complaint: ("I think my blood pressure has been high" "My blood sugars have been in the 180's"). Alert. No acute distress. ELADIO COMA SCORE: Eladio Coma Scale: 15- eyes open spontaneously (4); best verbal response- oriented x 4 (5); best motor response- obeys commands (6). --14:33 Mar Odonnell R.N. 14:22 06/08/16. BP: 126/85. HR: 70. RR: 18. O2 saturation: 94% on room air. Temp: 98.6 F (oral). Pain level now: 0/10. --14:33 Mar Odonnell R.N. 14:22 06/08/16. BP: 126/85. HR: 70. RR: 18. O2 saturation: 94% on room air. Temp: 98.6 F (oral). Pain level now: 0/10. --14:33 Mar Odonnell R.N. Weight: 99.7 kg stated. Height/Length: 69 inches Per Patient. BMI: 32.5. --14:28 Mar Odonnell R.N. Medications Albuterol Sulfate Inhalation. AmLODIPine Besylate Oral 5 mg, daily. Cozaar Oral 100 mg, daily. Hydrochlorothiazide Oral 25 mg, daily. Lupron Depot Intramuscular, Q 6 months. MetFORMIN HCl Oral 500 mg, 2x a day. Metoclopramide HCl Oral 10 mg, 2x a day. --14:31 Mar Odonnell R.N. Nitrostat Sublingual 0.4 mg, PRN. Potassium Oral 10 MEQ, daily. Pradaxa Oral (Capsule 150 mg) 1 capsule, 2xdaily. Tricor Oral (Tablet 145 mg) 1 tablet. --14:31 Mar Odonnell R.N. Medication/allergy information source: the patient. --14:33 Mar Odonnell R.N. Allergies Statins. --14:31 Mar Odonnell R.N. History Arrived by private vehicle. Historian: patient. Primary physician (loni Hinojosa). This started yesterday. No fever, weakness or difficulty breathing. Denies muscle aches. 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 PAST MEDICAL HX: Immunizations: status is unknown. SOCIAL HX: Never smoker. No alcohol use or drug use. FALL RISK ASSESSMENT: Fall risk assessment completed. No fall risk identified. NUTRITIONAL RISK ASSESSMENT: The nutritional risk assessment revealed no deficiencies. FUNCTIONAL ASSESSMENT: Functional assessment: no impairments noted. LEARNING NEEDS ASSESSMENT: The learning needs assessment revealed no barriers. SKIN INTEGRITY ASSESSMENT: Skin integrity risk assessment completed. No skin integrity risk identified. --14:33 Mar Odonnell R.N. PROBLEMS: Weakness. Hypotension. Diarrhea. Abdominal Pain. Gallstone(s). PR. Pacemaker. Diabetes Mellitus. Hypertension. --14:30 Mar Odonnell R.N. ADDITIONAL SURGERIES: Cholecystectomy. Pacemaker. Sinus Surgery. --14:30 Mar Odonnell R.N. Interventions ID band on patient. To room. --14:33 Mar Odonnell R.N. PHYSICAL ASSESSMENT Ambulatory to room. Patient gowned. GENERAL / NEURO / PSYCH: Alert. Oriented X 4. Appears anxious. HEENT: Mucous membranes are pink. RESPIRATORY: Respirations not labored. CVS: Capillary refill less than 2 seconds. GI / : Abdomen nontender. SKIN: Skin intact. Skin is warm and dry. Normal skin turgor. --14:34 Mar Odonnell R.N. NURSING PROGRESS NOTES Patient gowned. Head of bed elevated. Two patient identifiers checked. Call light placed in reach. Side rails up x 2. Bed placed in lowest position. Brakes of bed on. Patient ready for evaluation. --14:34 Mar Odonnell R.N. 14:53 06/08/2016 Site #1 started via IV in the right hand with an 20g angiocath, with aseptic technique and good blood return; one attempt. Blood drawn: rainbow set. Labeled in the presence of the patient and sent to the lab. Saline lock flushed with 10 mL saline. --14:53 Mar Odonnell R.N. DISPOSITION / DISCHARGE 15:42. Condition at departure: improved. No learning barriers present. Patient verbalized understanding. Written instructions provided in Portuguese. The patient was discharged home. He left the Emergency Department ambulatory and via private vehicle. Patient driving. Medication list reviewed and validated. --19:38 Mar Odonnell R.N. 19:35 06/08/16. BP: 129/68. HR: 69. RR: 18. O2 saturation: 97% on room air. 14:22 06/08/16. BP: 126/85. HR: 70. RR: 18. O2 saturation: 94% on room air. Temp: 98.6 F (oral). Pain level now: 0/10. --19:38 Mar Odonnell R.N. Locked/Released at 06/08/2016 19:39 by Mar Odonnell R.N.
--- NOTE | 2016-06-08 15:24 | ED ORDER SUMMARY ---
..... Patient: MANDIE MENEZES OrderSheet [facility] VisitID: [id number] [place] [address] 70y, M Registration Date/Time: 06/08/2016 ORDER SHEET Weight: 99.7 kg (stated) Allergies: Statins GENERAL ORDERS: BMP Urgent (14:42 06/08/2016 Breezy Tracey) (Ack 14:45 TBergley) (14:53 SRoberts R.N.) CBC w Diff Urgent (14:42 06/08/2016 Breezy Tracey) (Ack 14:45 TBergley) (14:53 SRoberts R.N.) MEDICATION ORDERS: IV FLUIDS: IV Saline Lock (14:53 06/08/2016 Thai R.N. per protocol) (14:53 SRoberts R.N.) ORDER SHEET NOTES: [Electronically signed by Mar Odonnell R.N. (19:39 06/08/2016)] [Electronically signed by Wilbur Hendrickson Dr. (05:44 06/11/2016)] [Electronically locked/signed by Mar Odonnell R.N. (19:39 06/08/2016)]
--- NOTE | 2016-06-08 15:24 | ED CLINICAL REPORT ---
Clinical Report - Physicians/Mid Levels [facility] [address] [place] [address] 06/08/2016 13:47 Patient: MANDIE MENEZES Time Seen: 1225. Arrived- By private vehicle. Historian- patient. HISTORY OF PRESENT ILLNESS Chief Complaint: BLOOD PRESSURE CHECK. ( States that his home blood pressure and was 160/100. patient otherwise states he feels fine.). This started yesterday and is still present. It was abrupt in onset and has been constant but is not gone now. At its maximum, severity described as moderate. When seen in the E.D., severity described as moderate. Modifying factors- (Does not know what makes it worse. Better with blood pressure medication.). (Patient reports having no change to his medications recently. Patient states he has been compliant wis m). Similar symptoms previously: None. Recent medical care: Not recently seen/assessed. REVIEW OF SYSTEMS No sore throat, sinus drainage, cough, difficulty breathing or chest pain. No abdominal pain, nausea, headache or blackouts. No difficulty with ambulation. All systems otherwise negative, except as recorded above. PAST HISTORY See nurses notes. Medications: Nitrostat Sublingual 0.4 mg, PRN. Potassium Oral 10 MEQ, daily. Pradaxa Oral (Capsule 150 mg) 1 capsule, 2xdaily. Tricor Oral (Tablet 145 mg) 1 tablet. Albuterol Sulfate Inhalation. AmLODIPine Besylate Oral 5 mg, daily. Cozaar Oral 100 mg, daily. Hydrochlorothiazide Oral 25 mg, daily. Lupron Depot Intramuscular, Q 6 months. MetFORMIN HCl Oral 500 mg, 2x a day. Metoclopramide HCl Oral 10 mg, 2x a day. Allergies: Statins. SOCIAL HISTORY Never smoker. No alcohol use or drug use. Is a local resident. ADDITIONAL NOTES The nursing notes have been reviewed. PHYSICAL EXAM Vital Signs: 06/08/2016 14:22 BP: 126/85. HR: 70. RR: 18. O2 saturation: 94%. Temp: 98.6 F. Pain level now: 0/10. Blood pressure normal. Oxygen saturation normal. Appearance: Alert. No acute distress. Eyes: Pupils equal, round and reactive to light. Eyes normal inspection. (retinal examination no papilledema to the right. Normal-appearing retinal vasculature. 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 ENT: Ears normal. Nose normal. Pharynx normal. Neck: Normal inspection. Neck supple. CVS: Normal heart rate and rhythm. Heart sounds normal. Pulses normal. Respiratory: No respiratory distress. Breath sounds normal. Chest nontender. Abdomen: No visible injury. Soft and nontender. Bowel sounds normal. Skin: Skin warm and dry. Normal skin color. No rash. Normal skin turgor. Extremities: Extremities exhibit normal ROM. No lower extremity edema. Neuro: Oriented X 3. No motor deficit. No sensory deficit. LABS, X-RAYS, AND EKG Laboratory Tests: CBC w Diff: (ELAINA: 06/08/2016 14:45) ( [facility] 06/08/2016 15:06) Final results Test Result Flag Units (Reference) WHITE BLOOD COUNT 4.2 L K/uL (4.5-11.5) RED BLOOD COUNT 4.70 M/uL (4.50-5.90) HEMOGLOBIN 14.1 gm/dL (13.5-17.5) HEMATOCRIT 42.5 % (41.0-53.0) MEAN CELL VOLUME 91 fL (80-100) MEAN CORPUSCULAR HGB 30 pg (26-34) MEAN CORPUSCULAR HGB CONC 33 g/dL (31-37) RED CELL DISTRIBUTION WIDTH 14.3 % (11.6-14.8) PLATELET COUNT 255 K/uL (150-400) NEUTROPHIL % 58.7 % (50-75) LYMPH % 18.8 L % (25-40) MONO % 11.2 % (3-14) EOSINOPHIL % 10.9 H % (0-4) BASOPHIL % 0.4 % (0-2) BMP: (ELAINA: 06/08/2016 14:45) ( [facility] 06/08/2016 15:21) Final results Test Result Flag Units (Reference) GLUCOSE 153 H mg/dL (70-110) BUN 12 mg/dL (7-18) CREATININE 0.7 mg/dL (0.6-1.3) Estimated GFR >60 mL/min Estimated GFR- >60 mL/min Note: Persistent reduction over 3 months in eGFR<60 mL/min/1.73 m2 defines CKD. Patients with eGFR values>=60 mL/min/1.73 m2 may also have CKD if evidence ofpersistent proteinuria. Additional information may be foundat www.[email or web address].org. SODIUM 139 mmol/L (136-145) POTASSIUM 3.5 mmol/L (3.5-5.1) CHLORIDE 105 mmol/L (98-107) CARBON DIOXIDE 23 mmol/L (21-32) CALCIUM 9.0 mg/dL (8.5-10.1) . PROGRESS AND PROCEDURES Course of Care: he patient is a pleasant 70-year-old male with past medical history significant for diabetes and hypertension presenting for evaluation of elevated blood pressure and elevated blood sugar. Patient is resting in bed and in no acute distress. No symptoms at this time. We'll evaluate patient for end organ damage. No signs of neurovascular compromise at this time. No signs of intraoral cranial pressure elevation on funduscopic examination in the right eye. Left eye is unable to be examined secondary to cataracts. Patient is agreeable to treatment plan. Blood pressures noted to be normal here in the emergency department. patient's laboratory studies are noted for mild elevation in blood glucose however no other acute abnormalities noted. No signs of end organ damage. Patient was reevaluated and found to be resting in bed and in no acute distress. Patient continues to be a symptomatically. Discussed the patient is workup here in the emergency department including diagnosis, home care, follow-up, and return precautions. All questions have been answered. The patient expressed understanding of these instructions and was agreeable to them. CLINICAL IMPRESSION Chronic, well controlled type 2 diabetes. Essential hypertension. INSTRUCTIONS Warnings: GENERAL WARNINGS: Return or contact your physician immediately if your condition worsens or changes unexpectedly, if not improving as expected, or if other problems arise. Specifically return if pain, vomiting, bleeding, breathing difficulty or fever. Your Current Medications: CONTINUE TAKING THE FOLLOWING MEDICATIONS: Albuterol Sulfate Inhalation. AmLODIPine Besylate Oral : 5 mg daily. Cozaar Oral : 100 mg daily. Hydrochlorothiazide Oral : 25 mg daily. Lupron Depot Intramuscular : Q 6 months. MetFORMIN HCl Oral : 500 mg 2x a day. Metoclopramide HCl Oral : 10 mg 2x a day. Nitrostat Sublingual : 0.4 mg PRN. Potassium Oral : 10 MEQ daily. Pradaxa Oral : Capsule 150 mg, 1 capsule 2xdaily. Tricor Oral : Tablet 145 mg, 1 tablet. Follow-up: Return to the emergency department as needed. Follow up with your doctor in three days. Reason for referral: recheck today's concerns. Summary of care provided to patient via paper. Screening today revealed the patient's blood pressure to be in the normal range. The patient should follow up with a primary care provider for blood pressure management. Understanding of the discharge instructions verbalized by patient. (Electronically signed by Wilbur Hendrickson Dr. 06/11/2016 5:44)
--- NOTE | 2016-06-08 15:24 | ED NURSING NOTES ---
Clinical Report - Nurses [facility] [address] [place] [address] 06/08/2016 13:47 [id number] Triage time 14:22. Acuity: LEVEL 3. Chief Complaint: ("I think my blood pressure has been high" "My blood sugars have been in the 180's"). Alert. No acute distress. ELADIO COMA SCORE: Eladio Coma Scale: 15- eyes open spontaneously (4); best verbal response- oriented x 4 (5); best motor response- obeys commands (6). --14:33 Mar Odonnell R.N. 14:22 06/08/16. BP: 126/85. HR: 70. RR: 18. O2 saturation: 94% on room air. Temp: 98.6 F (oral). Pain level now: 0/10. --14:33 Mar Odonnell R.N. 14:22 06/08/16. BP: 126/85. HR: 70. RR: 18. O2 saturation: 94% on room air. Temp: 98.6 F (oral). Pain level now: 0/10. --14:33 Mar Odonnell R.N. Weight: 99.7 kg stated. Height/Length: 69 inches Per Patient. BMI: 32.5. --14:28 Mar Odonnell R.N. Medications Albuterol Sulfate Inhalation. AmLODIPine Besylate Oral 5 mg, daily. Cozaar Oral 100 mg, daily. Hydrochlorothiazide Oral 25 mg, daily. Lupron Depot Intramuscular, Q 6 months. MetFORMIN HCl Oral 500 mg, 2x a day. Metoclopramide HCl Oral 10 mg, 2x a day. --14:31 Mar Odonnell R.N. Nitrostat Sublingual 0.4 mg, PRN. Potassium Oral 10 MEQ, daily. Pradaxa Oral (Capsule 150 mg) 1 capsule, 2xdaily. Tricor Oral (Tablet 145 mg) 1 tablet. --14:31 Mar Odonnell R.N. Medication/allergy information source: the patient. --14:33 Mar Odonnell R.N. Allergies Statins. --14:31 Mar Odonnell R.N. History Arrived by private vehicle. Historian: patient. Primary physician (loni Hinojosa). This started yesterday. No fever, weakness or difficulty breathing. Denies muscle aches. Treatment [employer]: ("my reg meds"). PAST MEDICAL HX: Immunizations: status is unknown. SOCIAL HX: Never smoker. No alcohol use or drug use. FALL RISK ASSESSMENT: Fall risk assessment completed. No fall risk identified. NUTRITIONAL RISK ASSESSMENT: The nutritional risk assessment revealed no deficiencies. FUNCTIONAL ASSESSMENT: Functional assessment: no impairments noted. LEARNING NEEDS ASSESSMENT: The learning needs assessment revealed no barriers. SKIN INTEGRITY ASSESSMENT: Skin integrity risk assessment completed. No skin integrity risk identified. --14:33 Mar Odonnell R.N. PROBLEMS: Weakness. Hypotension. Diarrhea. Abdominal Pain. Gallstone(s). NE. Pacemaker. Diabetes Mellitus. Hypertension. --14:30 Mar Odonnell R.N. ADDITIONAL SURGERIES: Cholecystectomy. Pacemaker. Sinus Surgery. --14:30 Mar Odonnell R.N. Interventions ID band on patient. To room. --14:33 Mar Odonnell R.N. PHYSICAL ASSESSMENT Ambulatory to room. Patient gowned. GENERAL / NEURO / PSYCH: Alert. Oriented X 4. Appears anxious. HEENT: Mucous membranes are pink. RESPIRATORY: Respirations not labored. CVS: Capillary refill less than 2 seconds. GI / : Abdomen nontender. SKIN: Skin intact. Skin is warm and dry. Normal skin turgor. --14:34 Mar Odonnell R.N. NURSING PROGRESS NOTES Patient gowned. Head of bed elevated. Two patient identifiers checked. Call light placed in reach. Side rails up x 2. Bed placed in lowest position. Brakes of bed on. Patient ready for evaluation. --14:34 Mar Odonnell R.N. 14:53 06/08/2016 Site #1 started via IV in the right hand with an 20g angiocath, with aseptic technique and good blood return; one attempt. Blood drawn: rainbow set. Labeled in the presence of the patient and sent to the lab. Saline lock flushed with 10 mL saline. --14:53 Mar Odonnell R.N. DISPOSITION / DISCHARGE 15:42. Condition at departure: improved. No learning barriers present. Patient verbalized understanding. Written instructions provided in Turkmen. The patient was discharged home. He left the Emergency Department ambulatory and via private vehicle. Patient driving. Medication list reviewed and validated. --19:38 Mar Odonnell R.N. 19:35 06/08/16. BP: 129/68. HR: 69. RR: 18. O2 saturation: 97% on room air. 14:22 06/08/16. BP: 126/85. HR: 70. RR: 18. O2 saturation: 94% on room air. Temp: 98.6 F (oral). Pain level now: 0/10. --19:38 Mar Odonnell R.N. Locked/Released at 06/08/2016 19:39 by Mar Odonnell R.N.
--- NOTE | 2016-06-08 15:24 | ED ORDER SUMMARY ---
..... Patient: MANDIE MENEZES OrderSheet [facility] VisitID: [id number] [place] [address] 70y, M Registration Date/Time: 06/08/2016 ORDER SHEET Weight: 99.7 kg (stated) Allergies: Statins GENERAL ORDERS: BMP Urgent (14:42 06/08/2016 Breezy Tracey) (Ack 14:45 TBergley) (14:53 SRoberts R.N.) CBC w Diff Urgent (14:42 06/08/2016 Breezy Tracey) (Ack 14:45 TBergley) (14:53 SRoberts R.N.) MEDICATION ORDERS: IV FLUIDS: IV Saline Lock (14:53 06/08/2016 Thai R.N. per protocol) (14:53 SRoberts R.N.) ORDER SHEET NOTES: [Electronically signed by Mar Odonnell R.N. (19:39 06/08/2016)] [Electronically signed by Wilbur Hendrickson Dr. (05:44 06/11/2016)] [Electronically locked/signed by Mar Odonnell R.N. (19:39 06/08/2016)]
--- NOTE | 2016-06-11 05:44 | ED DISCHARGE INSTRUCTIONS ---
Patient: MANDIE MENEZES General Instructions [facility] VisitID: [id number] [place] [address] 70y, M Registration Date/Time: 06/08/2016 Chronic, well controlled type 2 diabetes. Essential hypertension. INSTRUCTIONS Warnings: GENERAL WARNINGS: Return or contact your physician immediately if your condition worsens or changes unexpectedly, if not improving as expected, or if other problems arise. Specifically return if pain, vomiting, bleeding, breathing difficulty or fever. Your Current Medications: CONTINUE TAKING THE FOLLOWING MEDICATIONS: Albuterol Sulfate Inhalation. AmLODIPine Besylate Oral : 5 mg daily. Cozaar Oral : 100 mg daily. Hydrochlorothiazide Oral : 25 mg daily. Lupron Depot Intramuscular : Q 6 months. MetFORMIN HCl Oral : 500 mg 2x a day. Metoclopramide HCl Oral : 10 mg 2x a day. Nitrostat Sublingual : 0.4 mg PRN. Potassium Oral : 10 MEQ daily. Pradaxa Oral : Capsule 150 mg, 1 capsule 2xdaily. Tricor Oral : Tablet 145 mg, 1 tablet. Follow-up: Return to the emergency department as needed. Follow up with your doctor in three days. Reason for referral: recheck today's concerns. Summary of care provided to patient via paper. Screening today revealed the patient's blood pressure to be in the normal range. The patient should follow up with a primary care provider for blood pressure management. Understanding of the discharge instructions verbalized by patient. ADDITIONAL INFORMATION Diabetes with High Blood Sugar You have been treated for high blood sugar (hyperglycemia). This may be becauseof an infection or other illness;eating too many sweets or starches ; not taking enough insulin. Home care High blood sugar may cause symptoms that you can learn to recognize, such as these: If you feel like your blood sugar may be too high, measure it using a blood or urine test. If it is above your usual range, use the "sliding scale"rRegular insulin dose your doctor gave you to correct this. If no "sliding scale" orders were given, contact your doctor for further advice. If your blood sugar is over 300, and you can't reach your doctor, go to the hospital emergency room. Monitor and write down your blood sugars - and insulin dose, if you take insulin - atleast twice a day. Do this before breakfast and before dinner. Do this for the next 3 to 5 days. Follow-up care Follow up with your health care provderduring the next week to review your blood sugar records. You will find out if you need to adjust your dose of insulin or other medicine for blood sugar. When to seek medical care Get prompt medical attention if either of these occur: High blood sugar.Symptoms are frequent urination, feeling dizzy, thirst, headache, nausea or vomiting, abdominal pain, and drowsiness or loss of consciousness. Low blood sugar. Symptoms are fatigue, headache, shakes, excess sweating, hunger, anxiety, reduced vision, drowsiness, weakness, confusion or loss of consciousness, and seizure. Diabetes (General Information) Cells of the body need glucose (sugar) for fuel. Insulin is the hormone in the body that lets glucose move from the blood into the cells. Diabetes is a chronic health condition where the body is not able to produce enough insulin, or does not respond well to its own insulin. Because the glucose in the blood cannot get into the cells, it builds up in the blood causing high blood sugar (hyperglycemia). Your actual blood sugar level is a result of the balance between several factors. These include what kind of food you eat and how much of it you eat, how much exercise you get, and the amount of insulin present in your body. Eating too much of the wrong kinds of food or not taking diabetes medicine on time can cause high blood sugar. Infections can cause high blood sugar even if you are taking medicines correctly. Missing meals, not eating enough food, or taking too much diabetes medicine can lead to low blood sugar. Untreated over long periods of time, diabetes can cause serious problems such as heart disease, stroke, kidney failure, blindness, nerve pain or loss of feeling in the legs and feet, and gangrene of the feet. With good treatment keeping your blood sugar under control, you can prevent or delay the complications of diabetes. Normal blood sugar levels are 70-130 one to two hours before a meal and not more than 180 two hours after a meal. Home Care: Follow your prescribed diabetic diet and take insulin or oral diabetic medicine exactly as ordered. Monitor blood sugars as advised. Keep a log of your results. This will help your doctor adjust your medicines to keep your blood sugar under control. Try to achieve your ideal weight. Proper diet and exercise can reduce or eliminate the need to take diabetes medicine. Avoid tobacco smoking, which worsens the effect of diabetes on your circulation. The risk of a heart attack in a diabetic is 15 times more likely if you smoke. Pay attention to good foot care. If you have lost feeling in your feet you may not notice an injury or infection. Check your feet and between your toes at least once a week. Wear a medical alert bracelet or carry a card in your wallet explaining that you are diabetic. In the event that you become very ill and are unable to give this information, it will help medical personnel provide proper care. If you become sick with a cold, the flu, or an infection (viral or bacterial), please do the following: Review your diabetes sick plan and contact your physician as instructed. You may have been advised to call the doctor immediately if: Your blood sugar is above 240 while taking your diabetes medication Your urine ketone levels are above normal or showing high levels of ketones You have been vomiting more than 6 hours You experience difficulty to trouble breathing You develop a high fever or you have had a fever for a couple of days and you aren't getting better You become light-headed and more sleepy than usual Keep taking your oral diabetes medicine (pills) even if you have been vomiting and feeling sick. Contact your doctor immediately for advice because you may need insulin to lower your blood sugar until you recover from your illness. Keep taking your insulin, even if you have been vomiting and feeling sick. Call your doctor immediately and ask if a temporary adjustment of your insulin dose is needed based on your blood glucose (sugar) results. Check your blood sugar every 2 to 4 hours, or at least 4 times a day. Check your keytones often. If you are vomiting and having diarrhea, monitor them more frequently. Don't skip meals. Try to eat small meals on a regular schedule, even if you do not have an appetite. Drink water or other calorie-free, non-caffeinated liquids to stay hydrated. If you are nauseated or vomiting, drink small amounts (sips, a teaspoon) every 5 minutes. To prevent dehydration, try to drink a cup or 8 ounces of fluids every hour while you are awake. Always carry a source of fast-acting sugar with you in case you get symptoms of low blood sugar (below 70). At the first sign of low blood sugar, eat or drink 15 to 20 grams of fast-acting sugar to raise your blood sugar. Examples include: 3 to 4 glucose tablets (found at most drugstores) 4 ounces (1/2 cup) of regular (not diet) softdrinks 4 ounces (1/2 cup) of any fruit juice 8 ounces (1 cup) of milk 5 to 6 pieces of hard candy 1 tablespoon of honey Check your blood sugar 15 minutes after treating yourself. If it is still low (below 70), take another 15 to 20 grams of fast-acting sugar. Test again in 15 minutes. If it returns to normal (70 or above), eat a snack or meal to keep your blood sugar in a safe range. If it remains low, call your doctor or go to an emergency room. Follow Up with your doctor as advised by our staff. For more information, contact the [place] [employer]. www.diabetes.org or 485-197-5163. Get Prompt Medical Attention if any of the following occur: HIGH BLOOD SUGAR: frequent urination, dizziness, drowsiness, thirst, headache, nausea or vomiting, abdominal pain, vision changes, fast breathing, confusion or loss of consciousness LOW BLOOD SUGAR: fatigue, headache, shakes, excess sweating, hunger, feeling anxious or restless, vision changes, drowsiness, weakness, confusion or loss of consciousness Chest pain or shortness of breath Dizziness or fainting Weakness of an arm or leg or one side of the face Trouble with speech or vision High Blood Pressure --Established High Blood Pressure (Hypertension) is a chronic disease. The cause is unknown in most cases. It can usually be controlled with lifestyle changes and/or medicines. Symptoms of high blood pressure may include headache, dizziness, visual changes, chest pain and shortness of breath. Sometimes it causes no symptoms at all. However, even if there are no symptoms, untreated high blood pressure increases the risk of heart attack, also known as acute myocardial infarction, or AMI, and stroke. It is a serious health risk and should not be ignored. A normal blood pressure is 120/80 or less. The first (top) number is the "systolic" pressure. The second (bottom) number is the "diastolic" pressure. Hypertension exists when either the top number is 140 or higher, OR the bottom number is 90 or higher on repeated measurements. Home Care: All patients with high blood pressure should do the following to lower their pressure. If you are on medicines, then these methods may reduce or eliminate your need for medicines in the future. Begin a weight loss program if you are overweight. Reduce your salt intake. Avoid high salt foods (olives, pickles, smoked meats, salted potato chips, etc.). Do not add salt to your food at the table. Use only small amounts of salt when cooking. Begin an exercise program. Discuss with your doctor what type of exercise program would be best for you. It doesn't have to be difficult. Even brisk walking for 20 minutes three times a week is a good form of exercise. Avoid medicines which contain heart stimulants. This includes many cold and sinus decongestant pills and sprays as well as diet pills. Check the warnings about hypertension on the label. Stimulants such as amphetamine or cocaine could be lethal for someone with hypertension. Never take these. Limit your caffeine intake or switch to caffeine-free products. Stop smoking. If you are a long-time smoker, this can be hard. Enroll in a stop-smoking program to improve your chance of success. Learning how to handle stress better is an important part of any program to lower blood pressure. Learn about relaxation methods such as meditation, yoga or biofeedback. If medicines were prescribed, take them exactly as directed. Missing doses may cause your blood pressure get out of control. Consider buying an automatic blood pressure machine (available at most pharmacies). Use this to monitor your blood pressure at home and report the results to your doctor. Follow Up: Regular visits to your own physician for blood pressure checks and medicine adjustment is an important part of your care. Make a follow-up appointment as directed by our staff. Get Prompt Medical Attention if any of the following occur: Chest pain or shortness of breath Severe headache Throbbing or rushing sound in the ears Nosebleed Sudden severe abdominal pain Extreme drowsiness, confusion or fainting Dizziness or vertigo (dizziness with spinning sensation) Weakness of an arm or leg or one side of the face Difficulty with speech or vision You have been given the following additional information: Diabetic Hyperglycemia Diabetes, General Info Hypertension, Established (Electronically signed by Wilbur Hendrickson Dr. 06/11/2016 5:44)
--- NOTE | 2016-06-11 05:45 | ED MED RECONCILIATION SUMMARY ---
Patient: MANDIE MENEZES Medication Reconciliation Report [facility] VisitID: [id number] [address] [place] [address] 70y, M Registration Date/Time: 06/08/2016 Weight: 99.7 kg Height/Length: 69 in. BMI: 32.5 ALLERGIES: Statins The patient's Home Medications are listed below: CONTINUE TAKING THE FOLLOWING MEDICATIONS: Albuterol Sulfate Inhalation AmLODIPine Besylate Oral 5 mg, daily Cozaar Oral 100 mg, daily Hydrochlorothiazide Oral 25 mg, daily Lupron Depot Intramuscular, Q 6 months MetFORMIN HCl Oral 500 mg, 2x a day Metoclopramide HCl Oral 10 mg, 2x a day Nitrostat Sublingual 0.4 mg, PRN Potassium Oral 10 MEQ, daily Pradaxa Oral (150 mg) 1 capsule, 2xdaily Tricor Oral (145 mg) 1 tablet The source(s) of the original Home Medication information: patient The following Medications were given to the patient in the Emergency Department: None. The following Medications were prescribed to the patient: None.
--- NOTE | 2016-06-11 05:45 | ED MED RECONCILIATION SUMMARY ---
Patient: MANDIE MENEZES Medication Reconciliation Report [facility] VisitID: [id number] [address] [place] [address] 70y, M Registration Date/Time: 06/08/2016 Weight: 99.7 kg Height/Length: 69 in. BMI: 32.5 ALLERGIES: Statins The patient's Home Medications are listed below: CONTINUE TAKING THE FOLLOWING MEDICATIONS: Albuterol Sulfate Inhalation AmLODIPine Besylate Oral 5 mg, daily Cozaar Oral 100 mg, daily Hydrochlorothiazide Oral 25 mg, daily Lupron Depot Intramuscular, Q 6 months MetFORMIN HCl Oral 500 mg, 2x a day Metoclopramide HCl Oral 10 mg, 2x a day Nitrostat Sublingual 0.4 mg, PRN Potassium Oral 10 MEQ, daily Pradaxa Oral (150 mg) 1 capsule, 2xdaily Tricor Oral (145 mg) 1 tablet The source(s) of the original Home Medication information: patient The following Medications were given to the patient in the Emergency Department: None. The following Medications were prescribed to the patient: None.
--- NOTE | 2016-06-11 05:45 | ED MAR SUMMARY ---
..... Medication Administration Record Merged With [facility] [address], [place] [id number] Patient: MANDIE MENEZES Visit ID: [id number] 70y, M Weight: 99.7 kg Height/Length: 69 in BMI: 32.5 ALLERGIES: Statins
--- NOTE | 2016-06-11 05:45 | ED MAR SUMMARY ---
..... Medication Administration Record [facility] [address] [place], [place] [id number] Patient: MANDIE MENEZES Visit ID: [id number] 70y, M Weight: 99.7 kg Height/Length: 69 in BMI: 32.5 ALLERGIES: Statins
== END 2016-06-08 15:42 | disposition home or self-care (01) ==
LOC: ED SRH 13:46
DX: I10 Essential (primary) hypertension (principal); E11.9 Type 2 diabetes mellitus without complications; Z79.84 Long term (current) use of oral hypoglycemic drugs; Z79.899 Other long term (current) drug therapy
CPT/HCPCS: 90047; 95059